=== PATIENT | female | born 1980 | race Caucasian/White ===

== ENCOUNTER → 2021-02-19 14:45 | Outpatient (BNVA) | payer BC, SELFPAY | PROVIDERS: Family Provider Family Medicine; Visit Provider Obstetrics & Gynecology | DX: Z01.419 Encounter for gynecological examination (general) (routine) without abnormal findings (principal) | CPT/HCPCS: 83001; 84146; 84702; 85025 ==

== ENCOUNTER → 2021-02-25 14:04 | Outpatient (BNVA) | payer BC, SELFPAY | PROVIDERS: Family Provider Family Medicine; Visit Provider Obstetrics & Gynecology | DX: N92.0 Excessive and frequent menstruation with regular cycle (principal) | CPT/HCPCS: 76830 ==

== ENCOUNTER → 2021-07-26 08:22 | Outpatient (BNVA) | payer BC, SELFPAY | PROVIDERS: Family Provider Family Medicine; Visit Provider Obstetrics & Gynecology | DX: D25.0 Submucous leiomyoma of uterus (principal); D25.1 Intramural leiomyoma of uterus; D25.2 Subserosal leiomyoma of uterus; G89.29 Other chronic pain; N92.1 Excessive and frequent menstruation with irregular cycle; R10.2 Pelvic and perineal pain | CPT/HCPCS: 87635 ==

== ENCOUNTER 2021-07-31 09:08 | Observation (INO) | payer BC, SELFPAY ==
[2021-07-29 11:13] VITALS: BMI 28.8
[2021-07-29 12:12] LABS: OR HCG Qualitative Urine Negative (Negative)
[2021-07-29 12:51] LABS: Basophils % 0.5 %; Eosinophils % 0.5 %; Hematocrit 40.7 % (37.0-47.0); Hemoglobin 13.1 g/dL (11.5-15.3); Lymphocytes # 2.2 10^3/uL (0.8-4.8); Lymphocytes % 40.9 %; Mean Corpuscular HGB Conc 32.2 g/dL (30.0-36.0); Mean Corpuscular Volume 93.3 fl (81-99); Mean Platelet Volume 10.9 fL (7.4-10.4); Monocytes # 0.4 10^3/uL (0.2-0.9); Monocytes % 7.7 %; Neutrophils # 2.75 10^3/uL (1.8-7.7); Neutrophils % 50.2 %; Nucleated Red Blood Cells % 0 %; Platelet Count 280 10^3/cmm (130-400); Red Blood Count 4.36 10^6/uL (4.1-5.3); Red Cell Distribution Width 13.9 % (12.1-15.1); White Blood Count 5.5 10^3/uL (4.0-10.0)
[2021-07-29 13:08] LABS: Alanine Aminotransferase 9 U/L (0-33); Albumin Level 4.5 g/dL (3.5-5.2); Alkaline Phosphatase 51 IU/L (35-105); Aspartate Amino Transferase 16 U/L (0-32); Blood Urea Nitrogen 9 mg/dL (6-20); Calcium 9.4 mg/dL (8.5-10.5); Carbon Dioxide 26 mmol/L (22-29); Chloride 107 mmol/L (98-107); Creatinine Clr Calc Pharmacy 150.9567; Globulin 3.1 g/dL (1.3-4.6); Glomerular Filtration Rate 137.4 mL/min (90-130); Glucose 69 mg/dL (65-115); Osmolality Calculated 289 mOsm/kg (285-295); Sodium 141 mmol/L (136-145); Total Bilirubin 0.6 mg/dL (0.15-1.2); Total Protein 7.6 g/dL (6.6-8.7)
[2021-07-30 13:46] LABS: Add Urine Microscopic? NO; Charge for UA Resulting for Rev
[2021-07-30 13:54] LABS: Bilirubin Urine Neg (Negative); Blood Urine Neg (Negative); Glucose Urine UA Norm (Normal); Ketones Urine Negative (Negative); Leukocyte Esterase Urine Negative (Negative); Nitrate Urine Negative (Negative); Protein Urine Neg (Negative); Specific Gravity, Urine 1.015 (1.005-1.030); Urine Appearance Clear (CLEAR); Urine Color Yellow (Yellow); Urobilinogen Urine Norm (Negative); pH Urine 5 (5-7)
[2021-07-31] VITALS (11 sets, daily range): BP systolic 102–140; BP diastolic 51–76; PULSE 62–88; RESP 16–18; TEMP 36.4–37.1; O2SAT 98–100
[2021-07-31] MEDS: sodium chloride 0.9% 500 ML IV (06:15)
[2021-07-31] MEDS: scopolamine 1.5 Patch 1 PATCH TRANSDERMA (06:21)
--- NOTE | 2021-07-31 06:35 | ANES.PREANE2 ---
Pre-Anesthetic Assessment Pre-Anesthetic Assessment: Height/Weight: Height 1.63 m Weight 76.204 kg Temp Pulse Resp BP Pulse Ox 98.7 F 78 18 140/73 98 07/31/21 06:02 07/31/21 06:02 07/31/21 06:02 07/31/21 06:02 07/31/21 06:02 Preop Diagnosis: Menometrorrhagia, uterine fibroid Proposed Procedure: Operation Date: 07/31/21 07:00 Proposed Procedures p Laparoscopic Assist Vaginal Hysterectomy 46372 N92.1 D25.9 R10.2(Not Applicable) - Joe Dunn MD Familial anesthetic complications: none Was Beta Nav taken within 24 hours: N/A Was Clonidine taken within 24 hours: N/A Last intake: Intake Last Liquid Date 07/30/21 Last Liquid Time 19:00 Last Solid Date 07/30/21 Last Solid Time 19:00 Social: Social History: No alcohol and No tobacco Exam: Pre-Anes Outpt Exam: alert, oriented x 3, clear to auscultation bilaterally and regular rate & rhythm Airway: Cervical ROM: WNL MP: 1 Dentition: Other (1 missing) Metabolic: Metabolic: Thyroid Anesthetic Plan: ASA status: 2 Anesthesia: General Risk of > 500 ml blood loss (7ml/kg in children): No Meds/Allergies Current Medications: Current Medications Generic Name Dose Route Start Last Admin Trade Name Freq PRN Reason Stop Dose Admin Sodium Chloride 500 mls @ 500 mls /hr 07/31/21 05:49 07/31/21 06:15 Sodium Chloride 0.9% IV 07/31/21 06:48 500 mls/hr ONCE ONE Administration PFSH Anesthesia PFSH: Family History Father Hyperlipidemia Stroke Mother Hyperlipidemia Hypertension Stroke Thyroid condition Heart disease Grandmother Stroke maternal Thyroid condition maternal Uterine cancer maternal, age onset unknown Sister Thyroid condition Family/Other Thyroid condition maternal aunt x3 Breast cancer maternal aunts x2 38 and 50's Uterine cancer maternal aunt, age onset unknown Ovarian cancer maternal aunt, age onset unknown Denies family history of Colon cancer Diabetes Clotting disorder Anesthesia complication Bleeding disorder Social History Smoking and tobacco status: former smoker Quit status (tobacco): has quit using tobacco Year quit tobacco: 2019 Alcohol intake: current Alcohol intake frequency: holidays/special occasions only Alcohol type: wine Female Reproductive History: Date of last menstrual period: 07/19/21 Data Anesthesia CBC & Chem 7: 07/29/21 11:30 07/29/21 11:30 Other Labs: Laboratory Results - last 48 hr 07/29/21 07/29/21 07/29/21 11:30 11:30 11:30 WBC 5.5 RBC 4.36 Hgb 13.1 Hct 40.7 MCV 93.3 MCH 30.0 MCHC 32.2 RDW 13.9 Plt Count 280 MPV 10.9 H Neut % (Auto) 50.2 Lymph % (Auto) 40.9 Johnson % (Auto) 7.7 Eos % (Auto) 0.5 Baso % (Auto) 0.5 Neut # (Auto) 2.75 Lymph # (Auto) 2.2 Johnson # (Auto) 0.4 Eos # (Auto) 0.0 Baso # (Auto) 0.0 Nucleated RBC % (auto) 0 Nucleated RBCs # 0.0 Sodium Potassium Chloride Carbon Dioxide Anion Gap BUN Creatinine GFR Calculation Glucose Calculated Osmolality Calcium Total Bilirubin AST ALT Alkaline Phosphatase Total Protein Albumin Globulin Urine Color Yellow Urine Appearance Clear Urine pH 5 Ur Specific [place] 1.015 Urine Protein Neg Urine Glucose (UA) Norm Urine Ketones Negative Urine Blood Neg Urine Nitrate Negative Urine Bilirubin Neg Urine Urobilinogen Norm Ur Leukocyte Esterase Negative Urine HCG, Qual Negative Blood Type Rho(D) Type Antibody Screen 07/29/21 07/29/21 11:30 11:30 WBC RBC Hgb Hct MCV MCH MCHC RDW Plt Count MPV Neut % (Auto) Lymph % (Auto) Johnson % (Auto) Eos % (Auto) Baso % (Auto) Neut # (Auto) Lymph # (Auto) Johnson # (Auto) Eos # (Auto) Baso # (Auto) Nucleated RBC % (auto) Nucleated RBCs # Sodium 141 Potassium 4.0 Chloride 107 Carbon Dioxide 26 Anion Gap 12.0 BUN 9 Creatinine 0.5 GFR Calculation 137.4 H Glucose 69 Calculated Osmolality 289 Calcium 9.4 Total Bilirubin 0.6 AST 16 ALT 9 Alkaline Phosphatase 51 Total Protein 7.6 Albumin 4.5 Globulin 3.1 Urine Color Urine Appearance Urine pH Ur Specific [place] Urine Protein Urine Glucose (UA) Urine Ketones Urine Blood Urine Nitrate Urine Bilirubin Urine Urobilinogen Ur Leukocyte Esterase Urine HCG, Qual Blood Type A Positive Rho(D) Type Positive Antibody Screen Negative Cardiac Studies: No Data to Display
[2021-07-31] MEDS: sodium chloride 0.9% 1,000 ML 30 ML IV (06:45)
--- NOTE | 2021-07-31 06:48 | W.PM.OPSUD ---
Surgery/Procedure H&P Update DATE OF PROCEDURE: July 31, 2021 DATE H&P PERFORMED: 07/29/21 H&P UPDATE INFORMATION: I have reviewed H&P completed within last 30 days, I have examined patient prior to procedure and No changes to prior documentation PREOP DIAGNOSIS: Menometrorrhagia, uterine fibroid PLANNED PROCEDURE: Operation Date: 07/31/21 07:00 Proposed Procedures p Laparoscopic Assist Vaginal Hysterectomy 99827 N92.1 D25.9 R10.2(Not Applicable) - Joe Dunn MD
[2021-07-31] MEDS: ceFOXitin 2,000 MG in sodium chloride 0.9% (plus) 50 ML 100 MG IV (07:00)
--- NOTE | 2021-07-31 09:05 | P.OP_ITS ---
Operative Report Date of procedure: July 31, 2021 Pre-op Diagnosis: Menometrorrhagia, uterine fibroid Post-op diagnosis: same Post-op Findings: Normal pelvic organ. Status post bilateral tubal ligation Procedure Done: Laparoscopic-assisted vaginal hysterectomy Specimens removed/disposition: Uterus with left and right fallopian tubes Surgeon: Joe Dunn MD Anesthesia: General Estimated blood loss (mL): 200 Urine output (mL): 700 Complications: None Condition: stable Disposition: PACU Procedure: After discussing informed consent again, the patient was taken to the operating room where general anesthesia was administered. She was placed in the dorsal lithotomy position in low stirrups and prepped and draped in sterile fashion. Pre-Procedure Time-Out verifying the correct patient identity, correct procedure verified with consent, correct site and side, correct patient position, availability of correct implants and any special equipment or requirements was performed and acknowledge by the OR team. After the initial preparation, the procedure commenced at the vagina. With a Bookwalter vaginal retractor was place to visualize the cervix; the anterior and posterior lips of the cervix were separately grasped and clamped with josie tooth tenaculum. The cervix was then dilated to a #6 hegar dilator and a uterine manipulator within the uterine cavity for manipulation purposes being careful not to puncture the uterus. A Miranda catheter was placed in the bladder. Attention was then turned to the abdomen. The umbilical region was infiltrated with 2% lidocaine with epinephrine. Following infiltration with 2% lidocaine with epinephrine, an intraumbilical incision was made and the Verres needle was gently advanced taking care to feel for the typical sensation of penetrating the peritoneum. With CO2 infiltration, an opening pressure of 5 mmHg was noted, and following this, a pneumoperitoneum of 15 mmHg was created. A 5 mm Optiview trocar was then passed through the same incision under direct visualization. Trocar was removed and the laparoscope was then inserted through the trocar sleeve. Visualization of the peritoneal cavity was then obtained and a brief inspection did not reveal any signs of complications from entry. Under direct observation, a second incision was made 3 cm above the symphysis pubis, and a 5 mm trocar and sleeve were admitted into the abdomen under direct, laparoscopic visualization, 5mm flank ports were then placed laterally on left sides taking care to respect anatomical landmarks and vessels without complication. Once the placement of the ports was complete, the actual laparoscopic procedure began. The pelvic contents were visualized and noted an enlarged irregular uterus, deep cul-de-sac, normal bilateral fallopian tubes and ovaries normal, normal appendix, and both ureters were identified crossing the pelvic brim and pelvic sidewall. The left infundibulopelvic ligament was grasped and was coagulated/sealed and then transected with the Enseal device. The mesosalpinx was then sequentially, clamped, ligated, and cut using the Enseal device working alongside the length of the tube and towards the cornua. The left round ligament was grasped coagulated/sealed and transected using Enseal device. The left broad ligament was opened down to the level of the uterine artery and vein. The right infundibulopelvic ligament was grasped and the tuboovarian ligament was coagulated/sealed and then transected with the Enseal device. The mesosalpinx was then sequentially, clamped, ligated, and cut using the Enseal device working alongside the length of the tube and towards the cornua. The right round ligament was grasped coagulated/sealed and then transected with the Enseal device, and the right broad ligament was opened down to the level of the right uterine artery and vein. Peritoneum of the lower uterine segment was entered using Enseal, and the bladder was dissected off the lower uterine segment using blunt dissection. Careful inspection revealed complete hemostasis. Attention was then turned to the vaginal aspect of the surgery. The uterine manipulator was removed. The Miranda catheter was clamped. A Bookwalter vaginal retractor was placed in the vagina. The tenaculum was repositioned anteriorly a nd posteriorly. A circumferential incision was made at the cervical vaginal reflection using cautery. This was undermined first anteriorly and a colpotomy made without difficulty. This was then repeated posteriorly and a similar colpotomy made. Beginning first on the patient's left, the uterosacral and cardinal ligament was clamped, sealed, divided with the Enseal device and suture ligated. Two bites were required to reach the previous dissection margin of the left side. The same process was then repeated on the patient's right hand side, at which point, the specimen was completely freed. Once the sutures had been placed and the pedicles secured, the uterus was removed transvaginally without difficulty. All pedicles were inspected and hemostasis was confirmed. The patient was given indigo carmine. The vaginal vault was then oversewn with a running locking Vicryl suture, securing first the posterior edge of the cuff followed by the anterior edge. Good hemostasis was obtained. Two [id number] sutures were then placed across the vaginal vault to close it. Once these had been tied off, all sutures were trimmed. All instruments were removed from the vagina at this time. Then attention was again turned back to the abdomen and inspected the abdomen to ensure complete hemostasis. Once the entire abdomen was inspected. The fallopian tubes were moved usin the voyant device. Then the ports were then removed under direct visualization being sure to note hemostasis of the port sites on removal. The incisions were then closed with interrupted Monocryl sutures and dermobond adhesive. The patient tolerated the procedure well, anesthesia reversed, and the patient was taken to the recovery room in stable condition. All sponges, instruments, and sharps were counted and correct x 3.
--- NOTE | 2021-07-31 14:21 | PC.NURSE ---
Ambulation Patient out of bed and ambulated around the unit x2 laps. No dizziness noted and no difficulty getting out of bed. Patient tolerated well.
[2021-07-31] MEDS: dextrose 5%-lactated ringers 1,000 ML 125 ML IV ×2 (14:23→22:11)
--- NOTE | 2021-07-31 15:04 | ANE.PACU2 ---
Inpatient post-anesthesia follow up: Airway intact: Yes Vital signs: Temperature 98.1 F Pulse Rate 69 Respiratory Rate 18 Blood Pressure 110/68 Pulse Oximetry 100 Oxygen Delivery Me thod Room Air Oxygen Flow Rate 6 Fraction of Inspir ed Oxygen Hydration adequate: Yes Nausea and vomiting: No Pain level: 2 Mental status: Baseline
[2021-07-31] MEDS: ketorolac 30 mg/mL INJ IVP (19:10)
[2021-07-31] MEDS: docusate sodium 100 mg Capsule PO (19:18)
[2021-07-31] MEDS: HYDROcodone-acetaminophen 5-325 mg Tablet PO (19:18)
[2021-08-01] MEDS: ketorolac 30 mg/mL INJ IVP (02:05)
[2021-08-01 05:00] VITALS: BP 108/55; PULSE 58; RESP 15; TEMP 36.8; O2SAT 99
[2021-08-01 05:22] LABS: Hematocrit 30.6 % (37.0-47.0); Hemoglobin 9.9 g/dL (11.5-15.3); Mean Corpuscular HGB Conc 32.4 g/dL (30.0-36.0); Mean Corpuscular Hemoglobin 30.5 pg (28.0-34.0); Mean Corpuscular Volume 94.2 fl (81-99); Platelet Count 194 10^3/cmm (130-400); Red Blood Count 3.25 10^6/uL (4.1-5.3); Red Cell Distribution Width 14.2 % (12.1-15.1); White Blood Count 9.8 10^3/uL (4.0-10.0)
--- NOTE | 2021-08-01 08:24 | PM.OBGYDC ---
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 Charles 41-year-old female with a history of abnormal uterine bleeding unresponsive to medical management, chronic pelvic pain, uterine leiomyoma was admitted for planned laparoscopic-assisted vaginal hysterectomy. The procedure was performed without complications. She is afebrile and hemodynamically stable postoperatively day 1. Overnight observation uneventful. Tolerating diet well. Ambulating without difficulty. Passing flatus. Physical Exam Narrative: EXAM NARRATIVE: GA: Alert and oriented ?3. HEENT: WNL. Heart: Regular rate and rhythm. Lungs: Clear to auscultation bilaterally. Abdomen: Bowel sounds present, nontender. SEASONER HAND: Spotting. Extremities: No edema, no cyanosis, no calves pain. Urinary Catheter Management^: Miranda: Cath Placed During This Visit: yes, but has since been removed by the nurse Reason for Continuing Indwelling Catheter: Perioperative Use in Selected Surgeries Urinary Catheter Date of Insertion: 07/31/21 Urinary Catheter Time of Insertion: 07:30 Date Urinary Catheter Removed: 08/01/21 Time Urinary Catheter Discontinued: 05:00 Discharge Data Data Completed and Pending: Pending at discharge Category Date Time Status ES surgery / GI i mages Routine Exams 07/31/21 06:40 Taken Pathology: Surgic al [PTH] Routine Pth 07/31/21 09:17 Received Labs from last 24 hours 08/01/21 05:15 WBC 9.8 RBC 3.25 L Hgb 9.9 L Hct 30.6 L MCV 94.2 MCH 30.5 MCHC 32.4 RDW 14.2 Plt Count 194 MPV 10.0 Vitals: Last Vital Signs Temp 98.3 F 08/01/21 05:00 Pulse 58 L 08/01/21 05:00 Resp 15 08/01/21 05:00 BP 108/55 08/01/21 05:00 Pulse Ox 99 08/01/21 05:00 Discharge Plan Discharge Patient Disposition: Home Condition: Stable Prescriptions: New hydrocodone-acetaminophen 5-325 mg tablet 1 tab PO Q4H PRN (Reason: pain) Qty: 20 RF: 0 docusate sodium [Colace] 100 mg capsule 100 mg PO BID Qty: 60 RF: 0 ferrous sulfate [Iron (ferrous sulfate)] 325 mg (65 mg iron) tablet 325 mg PO BID Qty: 60 RF: 0 ibuprofen 800 mg tablet 800 mg PO TID PRN (Reason: pain) Qty: 60 RF: 0 acetaminophen 325 mg capsule 325 mg PO Q4H PRN (Reason: fever or postoperative pain) Qty: 60 RF: 0 Continued levothyroxine 150 mcg capsule 150 mcg PO DAILY RF: 0 Discharge Orders: Discharge Order (Routine); Ordered 08/01/21 Ordered By: Joe Dunn Referrals: Joe Dunn MD [Physician] - 08/13/21 9:15 am (6 week follow up appt with Dr Dunn 09/10/21 @ 4921 ) Discharge Diet: Usual diet Discharge Activity: Increase activity as tolerated Patient Instructions: Iron Supplements (By mouth) (Duofer, Fe-20, Bifera, Humberto-Iron), Hydrocodone/Acetaminophen (By mouth) (Vicodin, Duke, Lortab), Ibuprofen (By mouth), Laxative, Stool Softeners (By mouth) (Doculax, Colace, Colace Clear, DSS), Laparoscopic Hysterectomy (DC), OB Abdominal Surgery - [facility], OB Discharge Report, OB Food/Drug Interaction Guide, Opioid Safety, Vaginal Hysterectomy (GEN) Activity Restrictions/Additional Instructions: 1. Please call [facility] on next working day to make your post-operative appointment in 2 weeks. 2. Please stay home until you come back to the clinic on first post-operative check up. 3. Please follow instructions on your medications CAREFULLY. 4. If you have abdominal incision, do not cover it unless dressing is necessary because of drainage. OK to shower, but avoid bath. Leave steri-strips until they fall off. If they are still on one week after surgery, you may remove them. 5. If you had vaginal surgery or vaginal repair, Dr. Dunn may instruct you to take SITZ bath. 6. Yellow, blood tinged odorous vaginal discharge is usually normal after hysterectomy or vaginal surgeries. 7. No sexual intercourse, tampons, or douches until you are completely released from the post-operative care. 8. Avoid constipation by eating right and maybe using some Metamucil or Milk of Magnesia. 9. All prescription refills are given during the working hours. Please do no wait till it runs out. Call the clinic at [phone] before your medication runs out. The clinic will get in touch with your doctor to prescribe medications if necessary. 10. Please remain within 40 mile radius from our hospital because emergencies do happen now and then during the post-operative period. 11. If you have stairs at home, take one step at a time slowly and minimize the number of trips. It helps to stay in one floor for the next few days. No lifting except what you can lift by one hand until you are released from the post-operative care. 12. Driving is discouraged until you are well healed. It may be 3-4 weeks before you feel strong enough to drive. You should be able to turn and look through the rear window without pain and you should be able to push the brake pedal very hard without pain before you drive. No fast rules, but SAFETY should be your primary concern. DO NOT drive if you are on sedating medications such as narcotics. 13. Call the clinic (during working hours) to make urgent appointment or go to the Emergency room, if any of the following occurs: i. Vaginal bleeding becomes heavy, more than a period. ii. Incision becomes red and sore, or drains pus. iii. Your temperature is over 100.4 or you have chill. iv. IV site becomes red and swollen (a little ``knot?? is usually OK) v. Persistent nausea and vomiting vi. Persistent constipation or diarrhea vii. Rash or allergic reaction to medications. 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
[2021-08-01 08:45] VITALS: BP 110/71; PULSE 64; RESP 18; TEMP 36.9; O2SAT 98
--- NOTE | 2021-08-02 15:16 | PC.RESP ---
SMOKING CESSATION INFORMATION SENT TO PATIENT.
== END 2021-08-01 08:55 | disposition home or self-care (01) ==
LOC: OBGYN 09:18
PROVIDERS: Admitting Provider Obstetrics & Gynecology; PCP Family Medicine; Visit Provider Obstetrics & Gynecology
PROC: 0UT9FZZ Resection of Uterus, Via Natural or Artificial Opening With Percutaneous Endoscopic Assistance (ICD-10-PCS; CPT 58552; principal; 2021-07-31 07:00)
DX: N92.1 Excessive and frequent menstruation with irregular cycle (principal); D25.9 Leiomyoma of uterus, unspecified; Z82.49 Family history of ischemic heart disease and other diseases of the circulatory system; Z82.3 Family history of stroke; Z87.891 Personal history of nicotine dependence
CPT/HCPCS: 58552; 36415; 80053; 81003; 81025; 84703; 85025; 85027; 86850; 86900; 88307; 96365; G0378; J0330; J0694; J1100; J1885; J2405; J2704; J2710; J3010; J3490; J7030; J7040; Q9968

== ENCOUNTER → 2021-08-13 09:16 | Outpatient (BNVA) | payer BC, SELFPAY | PROVIDERS: PCP Family Medicine; Visit Provider Obstetrics & Gynecology | DX: N39.0 Urinary tract infection, site not specified (principal); Z48.816 Encounter for surgical aftercare following surgery on the genitourinary system | CPT/HCPCS: 81000; 87086 ==

== ENCOUNTER 2023-07-15 14:26 | Emergency (ER) | payer OTHER, SELFPAY ==
[2023-07-15 15:05] VITALS: BP 145/89; PULSE 67; RESP 18; TEMP 36.7; O2SAT 99; BMI 30.9
[2023-07-15 16:10] LABS: Basophils % 0.1 %; Eosinophils % 0.4 %; Hematocrit 38.2 % (36-47); Lymphocytes # 2.1 10^3/uL (0.8-4.8); Lymphocytes % 27.7 %; Mean Platelet Volume 9.7 fL (7.4-10.4); Monocytes # 0.4 10^3/uL (0.2-0.9); Monocytes % 5.3 %; Neutrophils # 5.12 10^3/uL (1.8-7.7); Neutrophils % 66.2 %; Nucleated Red Blood Cells % 0 %; Platelet Count 296 10^3/cmm (157-399); Red Cell Distribution Width 13.4 % (12.1-15.1); White Blood Count 7.73 10^3/uL (3.29-11.43)
--- NOTE | 2023-07-15 16:13 | ED_ITS ---
Documented by User: ANTHONY Barron 07/15/23 16:24 HPI - Abdominal Pain General: Chief Complaint: Abdominal Pain Stated Complaint: low abd pain Time Seen by Provider: 07/15/23 16:13 Source: patient Mode of arrival: ambulatory Limitations: no limitations History of Present Illness: Patient is a nice 43-year-old female presents to ED today with complaint of epigastric and right upper quadrant abdominal pain. She states pain began after awoke her from sleep yesterday and has been constant in nature. She states approximately 9 years ago while with her twins she was diagnosed with gallbladder issues but decided to hold off on surgery as she was already high risk . She states since that time she will on frequently get flares of her discomfort seem to resolve on their own. She states pain starting yesterday evening has been constant and more severe than it has ever been. She has attempted eating/drinking but she states this makes the pain worse and causes her to feel incredibly nauseous. She has not had any episodes of emesis. Normal bowel movements. No fevers. Previous abdominal surgeries include section and hysterectomy. MD elicited complaint: abdominal pain Pertinent past history: none Onset (ago): day(s) (yesterday) Pain Consistency: constant Location: Epigastric and RUQ Severity: severe Quality: sharp Radiation: RUQ Migration to: no migration Exacerbating factors: eating Relieving factors: nothing Associated Symptoms: Reports nausea; Denies change in bowel habits, chills, diarrhea, dysuria, fever(s), heartburn, hematochezia, hematemesis, melena and vomiting Related Data: Patient : No Review of Systems Const: Denies: fever(s), chills, body aches, fatigue or malaise Card: Denies: chest pain Resp: Denies: dyspnea GI: Reports: abdominal pain and nausea; Denies: vomiting, hematemesis, heartburn, diarrhea, change in bowel habits, hematochezia or melena : Denies: flank pain, difficulty voiding, dysuria, urinary frequency, urinary urgency or urinary hesitancy Musc: Denies: neck pain, back pain, extremity pain or joint pain Skin/Breast: Denies: rash Neuro: Denies: headache(s) PFSH ED PFSH: Family History Father Hyperlipidemia Stroke Mother Hyperlipidemia Hypertension Stroke Thyroid condition Heart disease Grandmother Stroke maternal Thyroid condition maternal Uterine cancer maternal, age onset unknown Sister Thyroid condition Family/Other Thyroid condition maternal aunt x3 Breast cancer maternal aunts x2 38 and 50's Uterine cancer maternal aunt, age onset unknown Ovarian cancer maternal aunt, age onset unknown Denies family history of Colon cancer Diabetes Clotting disorder Anesthesia complication Bleeding disorder Social History Smoking and tobacco status: former smoker Quit status (tobacco): has quit using tobacco Year quit tobacco: 2019 Alcohol intake: current Alcohol intake frequency: holidays/special occasions only Alcohol type: wine Substance/Drug Use: never Physical Exam Const: COMMON NORMALS: no acute distress, average body habitus, patient oriented x3, no limitations, healthy appearing, alert and well nourished Eye: COMMON NORMALS: no scleral icterus Resp: COMMON NORMALS: normal respiratory effort and clear to auscultation bilaterally AUSCULTATION: clear to auscultation bilaterally Cardio: COMMON NORMALS: regular rate and regular rhythm RATE: regular rate RHYTHM: regular rhythm GI: COMMON NORMALS: Normal to inspection, nondistended, normoactive bowel sounds present, Soft to palpation and No hepatosplenomegaly present INSPECTION: Yes normal to inspection AUSCULTATION: Yes normoactive bowel sounds PALPATION: Yes Soft to palpation, Yes Tenderness to palpation present (GI) (RUQ/epigastric), No Guarding due to palpation present (GI), No Rigid due to palpation and Yes No hepatosplenomegaly present : COMMON NORMALS: Yes no CVA tenderness BLADDER/KIDNEY EXAM: Yes no CVA tenderness Back/Pelvis: COMMON NORMALS: no CVA tenderness Neuro: COMMON NORMALS: patient oriented x3 SENSORIUM/ORIENTATION: Yes alert Skin: COMMON NORMALS: no rashes or lesions noted GENERAL SKIN EXAM: no rashes or lesions noted Course Vital Signs: Vital signs: Vital Signs Temperature 98.0 F 07/15/23 15:05 Pulse Rate 75 07/15/23 17:13 Respiratory Rate 18 07/15/23 17:13 Blood Pressure 142/75 07/15/23 17:13 Pulse Oximetry 99 07/15/23 17:13 Oxygen Delivery Me thod Room Air 07/15/23 16:36 MDM - Abdominal Pain Lab Data 07/15/23 16:04 07/15/23 16:04 Labs/Radiology: Radiology Impressions Gallbladder Ultrasound 07/15/23 16:20 IMPRESSION: No acute findings. Laboratory Results WBC 7.73 10^3/uL (3.29-11.43) 07/15/23 16:04 RBC 4.20 10^6/uL (3.85-5.65) 07/15/23 16:04 Hgb 12.60 g/dL (11.27-16.99) 07/15/23 16:04 Hct 38.2 % (36-47) 07/15/23 16:04 MCV 91.0 fl (85-98) 07/15/23 16:04 MCH 30.0 pg (27-33) 07/15/23 16:04 MCHC 33.0 g/dL (30-55) 07/15/23 16:04 RDW 13.4 % (12.1-15.1) 07/15/23 16:04 Plt Count 296 10^3/cmm (157-399) 07/15/23 16:04 MPV 9.7 fL (7.4-10.4) 07/15/23 16:04 Neut % (Auto) 66.2 % 07/15/23 16:04 Lymph % (Auto) 27.7 % 07/15/23 16:04 Prentiss % (Auto) 5.3 % 07/15/23 16:04 Eos % (Auto) 0.4 % 07/15/23 16:04 Baso % (Auto) 0.1 % 07/15/23 16:04 Neut # (Auto) 5.12 10^3/uL (1.8-7.7) 07/15/23 16:04 Lymph # (Auto) 2.1 10^3/uL (0.8-4.8) 07/15/23 16:04 Prentiss # (Auto) 0.4 10^3/uL (0.2-0.9) 07/15/23 16:04 Eos # (Auto) 0.0 10^3/uL (0.0-0.8) 07/15/23 16:04 Baso # (Auto) 0.0 10^3/uL (0.0-0.1) 07/15/23 16:04 Nucleated RBC % (auto) 0 % 07/15/23 16:04 Nucleated RBCs # 0.0 /100WBC 07/15/23 16:04 Sodium 140 mmol/L (136-145) 07/15/23 16:04 Potassium 3.6 mmol/L (3.5-5.1) 07/15/23 16:04 Chloride 103 mmol/L (98-107) 07/15/23 16:04 Carbon Dioxide 29 mmol/L (22-29) 07/15/23 16:04 Anion Gap 11.6 (5-19) 07/15/23 16:04 BUN 7 mg/dL (6-20) 07/15/23 16:04 Creatinine 0.6 mg/dL (0.5-0.9) 07/15/23 16:04 GFR Calculation 110.2 mL/min (90-130) 07/15/23 16:04 Glucose 82 mg/dL (65-115) 07/15/23 16:04 Calculated Osmolality 287 mOsm/kg (285-295) 07/15/23 16:04 Calcium 8.7 mg/dL (8.5-10.5) 07/15/23 16:04 Total Bilirubin 0.6 mg/dL (0.15-1.2) 07/15/23 16:04 AST 18 U/L (0-32) 07/15/23 16:04 ALT 21 U/L (0-33) 07/15/23 16:04 Alkaline Phosphatase 57 U/L (35-105) 07/15/23 16:04 Total Protein 7.1 g/dL (6.6-8.7) 07/15/23 16:04 Albumin 4.2 g/dL (3.5-5.2) 07/15/23 16:04 Globulin 2.9 g/dL (1.3-4.6) 07/15/23 16:04 Lipase 21 U/L (13-60) 07/15/23 16:04 HCG, Qual Negative (Negative) 07/15/23 16:04 Urine Color Yellow (Yellow) 07/15/23 17:24 Urine Appearance Clear (CLEAR) 07/15/23 17:24 Urine pH 8 (5-7) H 07/15/23 17:24 Ur Specific [place] 1.015 (1.005-1.030) 07/15/23 17:24 Urine Protein Neg (Negative) 07/15/23 17:24 Urine Glucose (UA) Norm (Normal) 07/15/23 17:24 Urine Ketones 1+ (Negative) H 07/15/23 17:24 Urine Blood Neg (Negative) 07/15/23 17:24 Urine Nitrate Negative (Negative) 07/15/23 17:24 Urine Bilirubin Neg (Negative) 07/15/23 17:24 Prot Sulfosalicylic Acd Negative (Negative) 07/15/23 17:24 Urine Urobilinogen Norm mg/dL (Negative) 07/15/23 17:24 Ur Leukocyte Esterase Negative (Negative) 07/15/23 17:24 Discharge Plan Discharge Patient Disposition: Home Clinical Impression: Gallbladder colic Condition: Stable Prescriptions: No Action levothyroxine 150 mcg tablet 150 mcg PO DAILY Qty: 90 2RF Discharge Orders: Discharge ED (Routine); Ordered 07/15/23 Ordered By: Hernan Wellington Referrals: Moises Lilly MD [Primary Care Provider] - Discharge Diet: Advance as tolerated Discharge Activity: Increase activity as tolerated Patient Instructions: Biliary Colic (ED), Low Fat Diet (ED), Abdominal Pain (ED) Activity Restrictions/Additional Instructions: Clear liquid diet until abdominal pain resolves. Increase diet then to a low- fat diet. Use acetaminophen or ibuprofen for pain. Follow-up with primary care for further evaluation and treatment. Return to ER for new concerns or worsening symptoms such as high fever, blood in vomit or stool, or uncontrolled pain. Sign Out Sign Out Data: Patient Sign Out occurred on 07/15/23 at 17:34. Patient's care was discussed, and care was transferred from to Hernan Wellington. Coding Level of Care Code ED Academic Specialist for Chg Fwd Documented by User: KANDI Sanchez 07/15/23 18:19 HPI - Abdominal Pain General: Chief Complaint: Abdominal Pain Stated Complaint: low abd pain Time Seen by Provider: 07/15/23 16:13 PFS ED PFSH: Family History Father Hyperlipidemia Stroke Mother Hyperlipidemia Hypertension Stroke Thyroid condition Heart disease Grandmother Stroke maternal Thyroid condition maternal Uterine cancer maternal, age onset unknown Sister Thyroid condition Family/Other Thyroid condition maternal aunt x3 Breast cancer maternal aunts x2 38 and 50's Uterine cancer maternal aunt, age onset unknown Ovarian cancer maternal aunt, age onset unknown Denies family history of Colon cancer Diabetes Clotting disorder Anesthesia complication Bleeding disorder Social History Smoking and tobacco status: former smoker Quit status (tobacco): has quit using tobacco Year quit tobacco: 2019 Alcohol intake: current Alcohol intake frequency: holidays/special occasions only Alcohol type: wine Substance/Drug Use: never Course Vital Signs: Vital signs: Vital Signs Temperature 98.0 F 07/15/23 15:05 Pulse Rate 75 07/15/23 17:13 Respiratory Rate 18 07/15/23 17:13 Blood Pressure 142/75 07/15/23 17:13 Pulse Oximetry 99 07/15/23 17:13 Oxygen Delivery Me thod Room Air 07/15/23 16:36 MDM - Abdominal Pain Medical Decision Making Patient came in today for due to right upper quadrant abdominal pain. Patient did have some tenderness in the right upper quadrant. Patient appears nontoxic. Patient appears in mild to moderate pain. Abdomen is soft. Bowel sounds are present. Vital signs are normal. Differential diagnosis includes but not limited to gastritis, gallbladder disease, pancreatitis. CBC and CMP were normal. Urinalysis was normal. Gallbladder ultrasound showed no acute findings. Patient was given a GI cocktail with no improvement in discomfort. Patient reports pain just seem to improve over time. Suspect the patient probably has a dysfunctional gallbladder and will need HIDA scan for further evaluation. Reviewed recommendations with patient report need for follow-up with primary care. Patient stated understanding and agreed to plan with understanding to return to ER for worsening symptoms. Lab Data 07/15/23 16:04 07/15/23 16:04 Labs/Radiology: Radiology Impressions Gallbladder Ultrasound 07/15/23 16:20 IMPRESSION: No acute findings. Laboratory Results WBC 7.73 10^3/uL (3.29-11.43) 07/15/23 16:04 RBC 4.20 10^6/uL (3.85-5.65) 07/15/23 16:04 Hgb 12.60 g/dL (11.27-16.99) 07/15/23 16:04 Hct 38.2 % (36-47) 07/15/23 16:04 MCV 91.0 fl (85-98) 07/15/23 16:04 MCH 30.0 pg (27-33) 07/15/23 16:04 MCHC 33.0 g/dL (30-55) 07/15/23 16:04 RDW 13.4 % (12.1-15.1) 07/15/23 16:04 Plt Count 296 10^3/cmm (157-399) 07/15/23 16:04 MPV 9.7 fL (7.4-10.4) 07/15/23 16:04 Neut % (Auto) 66.2 % 07/15/23 16:04 Lymph % (Auto) 27.7 % 07/15/23 16:04 Prentiss % (Auto) 5.3 % 07/15/23 16:04 Eos % (Auto) 0.4 % 07/15/23 16:04 Baso % (Auto) 0.1 % 07/15/23 16:04 Neut # (Auto) 5.12 10^3/uL (1.8-7.7) 07/15/23 16:04 Lymph # (Auto) 2.1 10^3/uL (0.8-4.8) 07/15/23 16:04 Prentiss # (Auto) 0.4 10^3/uL (0.2-0.9) 07/15/23 16:04 Eos # (Auto) 0.0 10^3/uL (0.0-0.8) 07/15/23 16:04 Baso # (Auto) 0.0 10^3/uL (0.0-0.1) 07/15/23 16:04 Nucleated RBC % (auto) 0 % 07/15/23 16:04 Nucleated RBCs # 0.0 /100WBC 07/15/23 16:04 Sodium 140 mmol/L (136-145) 07/15/23 16:04 Potassium 3.6 mmol/L (3.5-5.1) 07/15/23 16:04 Chloride 103 mmol/L (98-107) 07/15/23 16:04 Carbon Dioxide 29 mmol/L (22-29) 07/15/23 16:04 Anion Gap 11.6 (5-19) 07/15/23 16:04 BUN 7 mg/dL (6-20) 07/15/23 16:04 Creatinine 0.6 mg/dL (0.5-0.9) 07/15/23 16:04 GFR Calculation 110.2 mL/min (90-130) 07/15/23 16:04 Glucose 82 mg/dL (65-115) 07/15/23 16:04 Calculated Osmolality 287 mOsm/kg (285-295) 07/15/23 16:04 Calcium 8.7 mg/dL (8.5-10.5) 07/15/23 16:04 Total Bilirubin 0.6 mg/dL (0.15-1.2) 07/15/23 16:04 AST 18 U/L (0-32) 07/15/23 16:04 ALT 21 U/L (0-33) 07/15/23 16:04 Alkaline Phosphatase 57 U/L (35-105) 07/15/23 16:04 Total Protein 7.1 g/dL (6.6-8.7) 07/15/23 16:04 Albumin 4.2 g/dL (3.5-5.2) 07/15/23 16:04 Globulin 2.9 g/dL (1.3-4.6) 07/15/23 16:04 Lipase 21 U/L (13-60) 07/15/23 16:04 HCG, Qual Negative (Negative) 07/15/23 16:04 Urine Color Yellow (Yellow) 07/15/23 17:24 Urine Appearance Clear (CLEAR) 07/15/23 17:24 Urine pH 8 (5-7) H 07/15/23 17:24 Ur Specific [place] 1.015 (1.005-1.030) 07/15/23 17:24 Urine Protein Neg (Negative) 07/15/23 17:24 Urine Glucose (UA) Norm (Normal) 07/15/23 17:24 Urine Ketones 1+ (Negative) H 07/15/23 17:24 Urine Blood Neg (Negative) 07/15/23 17:24 Urine Nitrate Negative (Negative) 07/15/23 17:24 Urine Bilirubin Neg (Negative) 07/15/23 17:24 Prot Sulfosalicylic Acd Negative (Negative) 07/15/23 17:24 Urine Urobilinogen Norm mg/dL (Negative) 07/15/23 17:24 Ur Leukocyte Esterase Negative (Negative) 07/15/23 17:24 All radiology interpretation(s) finalized by discharge Discharge Plan Discharge Patient Disposition: Home Clinical Impression: Gallbladder colic Condition: Stable Prescriptions: No Action levothyroxine 150 mcg tablet 150 mcg PO DAILY Qty: 90 2RF Discharge Orders: Discharge ED (Routine); Ordered 07/15/23 Ordered By: Hernan Wellington Referrals: Moises Lilly MD [Primary Care Provider] - Discharge Diet: Advance as tolerated Discharge Activity: Increase activity as tolerated Patient Instructions: Biliary Colic (ED), Low Fat Diet (ED), Abdominal Pain (ED) Activity Restrictions/Additional Instructions: Clear liquid diet until abdominal pain resolves. Increase diet then to a low- fat diet. Use acetaminophen or ibuprofen for pain. Follow-up with primary care for further evaluation and treatment. Return to ER for new concerns or worsening symptoms such as high fever, blood in vomit or stool, or uncontrolled pain. Sign Out Sign Out Data: Patient Sign Out occurred on 07/15/23 at 17:34. Patient's care was discussed, and care was transferred from to Hernan Wellington. Coding Level of Care Code ED Academic Specialist for Obie Lorenz
--- NOTE | 2023-07-15 16:20 | USR_ITS ---
PROCEDURE INFORMATION: Exam: US Abdomen, Limited; Right Upper Quadrant Exam date and time: 07/15/2023 4:38 PM Age: 43 years old Clinical indication: Abdominal pain; Acute; Patient HX: Ruq pain TECHNIQUE: Imaging protocol: Real time ultrasound of the abdomen with image documentation. Limited exam focused on the right upper quadrant. COMPARISON: ES surgery / GI images 07/31/2021 6:33 AM FINDINGS: Liver: Normal size measuring 16.7 cm in length. No masses. Normal portal vein. Gallbladder: Normal. No gallstones. There is no gallbladder wall thickening. Nunez's sign reported negative. Biliary ducts: Normal. No stones. No dilation. Pancreas: Visualized pancreas is unremarkable. Right kidney: Normal. No mass. No hydronephrosis. Aorta: Aorta is normal as visualized. Inferior vena cava: Inferior vena cava is normal as visualized. US/US gall bladder [id number] IMPRESSION: No acute findings.
[2023-07-15 16:22] LABS: HCG, Serum Qual Negative (Negative)
[2023-07-15 16:27] LABS: Alanine Aminotransferase 21 U/L (0-33); Albumin Level 4.2 g/dL (3.5-5.2); Alkaline Phosphatase 57 U/L (35-105); Anion Gap 11.6 (5-19); Aspartate Amino Transferase 18 U/L (0-32); Blood Urea Nitrogen 7 mg/dL (6-20); Calcium 8.7 mg/dL (8.5-10.5); Carbon Dioxide 29 mmol/L (22-29); Chloride 103 mmol/L (98-107); Globulin 2.9 g/dL (1.3-4.6); Glomerular Filtration Rate 110.2 mL/min (90-130); Glucose 82 mg/dL (65-115); Lipase 21 U/L (13-60); Osmolality Calculated 287 mOsm/kg (285-295); Potassium 3.6 mmol/L (3.5-5.1); Sodium 140 mmol/L (136-145); Total Bilirubin 0.6 mg/dL (0.15-1.2); Total Protein 7.1 g/dL (6.6-8.7)
[2023-07-15 16:36] VITALS: O2SAT 99
[2023-07-15] MEDS: lidocaine 2% viscous 15 ML, aluminum-mag hydrox-simethicon 30 ML, sucralfate oral liq 1 GM PO (17:12)
[2023-07-15 17:13] VITALS: BP 142/75; PULSE 75; RESP 18; O2SAT 99
[2023-07-15 17:27] LABS: Add Urine Microscopic? NO; Charge for UA Resulting for Rev
[2023-07-15 17:53] LABS: Urine Appearance Clear (CLEAR); Urine Color Yellow (Yellow); pH Urine 8 (5-7)
[2023-07-15 17:54] LABS: Bilirubin Urine Neg (Negative); Blood Urine Neg (Negative); Glucose Urine UA Norm (Normal); Ketones Urine 1+ (Negative); Leukocyte Esterase Urine Negative (Negative); Nitrate Urine Negative (Negative); Protein Urine Neg (Negative); Specific Gravity, Urine 1.015 (1.005-1.030); Sulfosalicylic Acid Urine Negative (Negative); Urobilinogen Urine Norm (Negative)
[2023-07-15 18:31] VITALS: BP 155/103; PULSE 70; RESP 16; O2SAT 96
[2023-07-15 18:32] VITALS: BP 155/103; PULSE 70; RESP 16; O2SAT 96
== END 2023-07-15 18:33 | disposition home or self-care (01) ==
PROVIDERS: Physician Assistant; Emergency Provider Nurse Practitioner Family; PCP Family Medicine
DX: K80.20 Calculus of gallbladder without cholecystitis without obstruction (principal); Z87.891 Personal history of nicotine dependence
CPT/HCPCS: 36415; 76705; 80053; 81003; 83690; 84703; 85025; 99284